=== PATIENT | female | born 1955 | race Caucasian/White ===

== ENCOUNTER 2021-04-28 18:10 | Emergency (ER) | payer OTHER, MEDICAID ==
[~2021-04-28] VITALS: Ht 172.7 cm; Wt 113.4 kg
[2021-04-28] MEDS ORDERED: ZESTRIL10 MG PO (18:23)
[2021-04-28] MEDS ORDERED: POLYMYXIN B/TMP10 ML INTRAOCULR (18:54)
[2021-04-28 19:15] VITALS: BP 175/101
== END 2021-04-28 19:15 | disposition home or self-care (01) ==
LOC: M.ERS 18:10
DX: H57.89 Other specified disorders of eye and adnexa (principal); Z91.030 Bee allergy status; Z88.8 Allergy status to other drugs, medicaments and biological substances; Z91.048 Other nonmedicinal substance allergy status